=== PATIENT | male | born 1980 | race Caucasian/White ===

== ENCOUNTER 2023-07-11 11:56 | Outpatient (CLI) | payer OTHER, BC | END 2023-07-11 23:59 | disposition home or self-care (01) | LOC: RAD 11:56 | PROVIDERS: ATTEND Chiropractor | DX: M25.861 Other specified joint disorders, right knee (principal); M54.50 Low back pain, unspecified; M25.761 Osteophyte, right knee | CPT/HCPCS: 72070; 72100; 73502; 73564 ==